=== PATIENT | male | born 1990 | race Caucasian/White ===

== ENCOUNTER 2019-11-03 15:29 | Emergency (ER) | payer BC, MEDICAID ==
[~2019-11-03] VITALS: Ht 170.2 cm; Wt 87.3 kg
[2019-11-03 15:39] VITALS: BP 101/63; TEMP 97.5
[2019-11-03 16:05] LABS: BASO % 0.4 % (0.0-2.0); EOS # 0.1 (0.0-0.7); EOS % 1.7 % (0-4.0); GRAN % 60.1 % (42.2-75.2); HEMATOCRIT 44.9 % (42.0-52.0); HEMOGLOBIN 15.1 g/dl (13.5-18.0); LYMPH # 2.3 (1.2-3.4); LYMPH % 27.4 % (20.0-51.0); MEAN CELL VOLUME 94 fl (80.0-100.0); MEAN CORPUSCULAR HEMOGLOBIN 32 pg (27.0-31.0); MEAN CORPUSCULAR HGB CONC 34 g/dl (33.0-37.0); MEAN PLATELET VOLUME 9.8 fl (7.4-10.4); MONO # 0.8 (0.1-0.6); PLATELET COUNT 181 K/mm3 (130-400); RED BLOOD COUNT 4.78 M/mm3 (4.20-5.60); REDCELL DISTRIBUTION WIDTH-CV 13.3 % (11.5-14.5)
[2019-11-03 16:14] LABS: ALBUMIN 4.9 gm/dL (3.5-5.0); BILIRUBIN,TOTAL 0.9 mg/dL (0.0-1.0); C-REACTIVE PROTEIN 0.6 mg/dL (0.0-0.9); CALCIUM 9.2 mg/dL (8.4-10.2); CREATININE, serum 1.08 (0.66-1.25); TOTAL PROTEIN 8.3 gm/dL (6.4-8.2)
[2019-11-03 17:11] LABS: COLLECTION METHOD CLEAN CATCH
[2019-11-03 17:18] LABS: PH 7 (5-8); SQUAMOUS EPITHELIAL None Seen /hpf; URINE APPEARANCE Clear; URINE BACTERIA None Seen /hpf; URINE BILIRUBIN Negative (NEGATIVE); URINE BLOOD Negative (NEGATIVE); URINE COLOR Yellow; URINE GLUCOSE Negative (NEGATIVE); URINE KETONE Negative (NEGATIVE); URINE LEUKOCYTE ESTERASE Negative (NEGATIVE); URINE NITRATE Negative (NEGATIVE); URINE PROTEIN(semi-quant) Negative (NEGATIVE); URINE RBC 0-2 /hpf; URINE UROBILINOGEN Negative (NEGATIVE)
[2019-11-03 18:33] VITALS: PULSE 72
== END 2019-11-03 18:33 | disposition home or self-care (01) ==
LOC: COL.ER 15:29
PROVIDERS: Emergency Medicine
DX: R10.11 Right upper quadrant pain (principal); R10.31 Right lower quadrant pain
CPT/HCPCS: J2270; J2405; J7030; Q9967

== ENCOUNTER → 2019-11-04 | Outpatient (CLI) | payer BC, MEDICAID | LOC: COL.RAD 10:15 | DX: R10.11 Right upper quadrant pain (principal) ==

== ENCOUNTER 2020-08-27 15:03 | Outpatient (RCR) | payer OTHER | END 2020-09-26 13:46 | disposition home or self-care (01) | LOC: WSOH 15:03 | DX: S46.012A Strain of muscle(s) and tendon(s) of the rotator cuff of left shoulder, initial encounter (principal); G43.909 Migraine, unspecified, not intractable, without status migrainosus; T78.40XA Allergy, unspecified, initial encounter; Z90.89 Acquired absence of other organs; Z98.890 Other specified postprocedural states; Y99.0 Civilian activity done for income or pay ==